=== PATIENT | female | born 1980 | race Caucasian/White ===

== ENCOUNTER 2018-01-25 06:59 | Inpatient (IN) | payer OTHER ==
[~2018-01-25] VITALS: Ht 172.7 cm; Wt 125.0 kg
--- NOTE | ~2018-01-25 | OR ---
[facility] [address] [place], [place] [address] Draft DATE OF OPERATION: 01/25/2018 SURGEON: Paulette Blanc DO PREOPERATIVE DIAGNOSES: 1. Di-Di twins at 36 weeks and five days gestation. 2. Active labor. 3. History of prior . 4. Obesity. 5. GBS positive. 6. Rh negative, status post RhoGAM at 28 weeks. POSTOPERATIVE DIAGNOSES: 1. Di-Di twins at 36 weeks and five days gestation. 2. Active labor. 3. History of prior . 4. Obesity. 5. GBS positive. 6. Rh negative, status post RhoGAM at 28 weeks. ANESTHESIA: Spinal. LAW WRITER: Daniel Mendoza MD ESTIMATED BLOOD LOSS: 700 mL. COMPLICATIONS: None. FINDINGS: Di-Di twins with baby A male , 6 pounds 7 ounces with Apgars of 9 and 9 in a cephalic position with a true knot noted. Baby B, female, 5 pounds 4 ounces with Apgars of 5 and 9 at 1 and 5 minutes respectively. No nuchal cord. Compound presentation who was delivered in double footling breech. Normal tubes, uterus, and ovaries. Some mild omental adhesions to the anterior abdominal wall. There was a small non expanding hematoma on the lower edge of the hysterotomy that was examined several times to ensure that it was not expanding. PATIENT NAME: YONG LARA OPERATIVE REPORT DATE OF : 84 REPORT #: [id number] PHYSICIAN: PAULETTE BLANC DO PCP: PAULETTE BLANC DO REPORT IS CONFIDENTIAL AND NOT TO BE RELEASED WITHOUT AUTHORIZATION [facility] [address] [place], [place] [address] Draft INDICATIONS: Ms. Lara is a pleasant 37-year-old, 7, para 1-0-5-1, with Di-Di twins at 36 and 5 weeks gestation who presented to Labor and delivery complaining of contractions increasing in frequency and intensity for several hours. She was admitted for observation and noted to undergo cervical change. She has a history of prior and decision was made to proceed with repeat low transverse delivery. Risks, benefits, alternatives were discussed in detail with the patient. Patient understands and wishes to proceed with the procedure. Pediatrics was notified and present for delivery. TECHNIQUE: The patient was taken the operating room. A time-out was performed for correct patient, correct procedure. Spinal anesthesia was adequately established. The patient was then prepped and draped in the supine position with a bump under the right hip. A Ardon catheter was inserted. ICP's were on and running, and Ancef 3 g were given preoperatively. No heparin was indicated. Once spinal anesthetic was adequately established, a Pfannenstiel skin incision was made through the old scar and carried down to the fascia. The fascia was nicked in the midline with a scalpel and fascial incision was extended bilaterally using Castro scissors. The fascia was grasped with Teresa's and the underlying rectus muscle dissected off easily, sharply, and bluntly. The rectus muscles were divided in the midline using sharp, and blunt dissection. The peritoneum was grasped with hemostats, elevated, and entered sharply. Peritoneal incision was extended caudad, and cephalad using blunt, and sharp dissection. The surgeon's hand was then placed into the abdomen and the small omental adhesions were noted superior to the operative site. No other adhesions were noted. An Casey self retractor was then placed, and the lower uterine segment identified. Hysterotomy was then performed using a surgical scalpel. Baby A was noted to be cephalic, and the amniotic sac was ruptured for clear fluid. The surgeon's hand was placed in the uterine cavity after the hysterotomy was extended using blunt dissection. The head was then elevated into the maternal abdomen, and delivered with the assistance of fundal pressure. The baby delivered easily and no nuchal cord was noted. However, there was a true knot x1. The cord was doubly clamped and cut. The was handed to the waiting pediatric team, and noted to be vigorous and crying. Attention was turned to baby B. Fundal pressure was applied and small parts were noted to be presenting. The amnion was ruptured and clear fluid was noted. The surgeon's hands were placed into the uterine cavity and a compound hand and foot presentation was noted. The 2nd foot was identified and was easily brought down to the hysterotomy. The baby's hand was reoriented into the upper fundus of the uterus and the baby was then delivered in a double footling breech position up to the axilla. The anterior arm was swept medially and the anterior arm was delivered. The baby was then rotated 180 degrees and the other arm was swept medial and PATIENT NAME: YONG LARA OPERATIVE REPORT DATE OF : 84 REPORT #: [id number] PHYSICIAN: PAULETTE BLANC DO PCP: PAULETTE BLANC DO REPORT IS CONFIDENTIAL AND NOT TO BE RELEASED WITHOUT AUTHORIZATION [address] [address] [place] delivered. The head was flexed and delivered without difficulty. The cord was doubly clamped, and cut, and the was somewhat lethargic, and handed off to the waiting pediatric team for additional care. Cord blood was obtained from each corner, and labeled for further analysis. The placenta was then spontaneously expressed intact with two centrally inserted three-vessel cords noted. The uterus was cleared of any remaining products of conception and clot and hysterotomy was reapproximated using 0 Vicryl in a running locked manner. A small hematoma was noted at the lower edge of the hysterotomy. This was examined several times throughout the procedure and noted to be non-expanding. A 2nd imbricating layer of 0 Vicryl was then applied in a vertical manner with good imbrication. Small amount of oozing was noted at the superior edge of the hysterotomy and this was made hemostatic with [id number]. Another small area of oozing was noted at the left edge of the hysterotomy and again this was made hemostatic with [id number] of 0 Vicryl. This was noted on the uterine corpus and not into the broad ligaments. Again, the hematoma was examined, and found to be non-expanding and the Casey self retractor was removed. The uterus was irrigated, and noted to be hemostatic several times. The uterus, tubes, and ovaries were found to be normal. Once hemostasis was appreciated a sheet was applied at the lower uterine segment and peritoneum was reapproximated using 2-0 Vicryl in a running nonlocked manner. The rectus muscle was examined, several small areas of oozing were made hemostatic with Bovie electrocautery. The rectus muscles were then reapproximated using 0 Vicryl, in two interrupted loose sutures. Although hemostasis was appreciated, decision was made to apply Kenneth powder to the previously noted oozing areas, and again excellent hemostasis was appreciated. ACell powder was then applied to the rectus sheath and fascia was reapproximated using 0 Vicryl in a running nonlocked manner. Subcutaneous tissues reapproximated with 3-0 Vicryl after ensuring hemostasis with Bovie electrocautery and irrigation. Skin was then reapproximated using surgical trudy. The uterus was Crede'd for scant amount of blood. The patient was then taken to the PACU in good stable condition with her babies. Sponge, needle, and instrument count was correct x2 at the end of the procedure. Dr. Mendoza was present participated in all portions of procedure. Paulette Blanc DO JDW/MODL /[id number] PATIENT NAME: YONG LARA OPERATIVE REPORT DATE OF : 84 REPORT #: [id number] PHYSICIAN: PAULETTE BLANC DO PCP: PAULETTE BLANC DO REPORT IS CONFIDENTIAL AND NOT TO BE RELEASED WITHOUT AUTHORIZATION [facility] [address] [place] [address] [place] [address] Draft Copies: ~ PATIENT NAME: YONG LARA OPERATIVE REPORT DATE OF : 84 REPORT #: [id number] PHYSICIAN: PAULETTE BLANC DO PCP: PAULETTE LBANC DO REPORT IS CONFIDENTIAL AND NOT TO BE RELEASED WITHOUT AUTHORIZATION
[~2018-01-25 06:59] MED LIST: IBUPROFEN800 MG PO; OMEPRAZOLE20 MG PO; [UNRECOGNIZED DRUG - OTHER] PO
--- NOTE | 2018-01-25 10:58 | NUR ---
01/25/18 1058 Lisa Perez 1051 PATIENT ARRIVES TO ROOM AWAKE, ALERT AND ORIENTED X3. RESP EVEN AND UNLABORED, ROOM AIR AT 98-100%. DENIES PAIN OR NAUSEA.
== END 2018-01-28 13:00 | disposition home or self-care (01) | DRG 765 ==
LOC: FBCO 06:59 → FBC 08:53
PROVIDERS: ADMIT Obstetrics & Gynecology
PROC: 10D00Z1 Extraction of Products of Conception, Low, Open Approach (ICD-10-PCS; principal; 2018-01-25 09:58)
DX: O30.043 Twin pregnancy, dichorionic/diamniotic, third trimester (principal); O60.14X1 Preterm labor third trimester with preterm delivery third trimester, fetus 1; O60.14X2 Preterm labor third trimester with preterm delivery third trimester, fetus 2; O99.214 Obesity complicating childbirth; E66.9 Obesity, unspecified; O99.824 Streptococcus B carrier state complicating childbirth; O99.62 Diseases of the digestive system complicating childbirth; K21.9 Gastro-esophageal reflux disease without esophagitis; O69.2XX1 Labor and delivery complicated by other cord entanglement, with compression, fetus 1; O76 Abnormality in fetal heart rate and rhythm complicating labor and delivery; O32.6XX2 Maternal care for compound presentation, fetus 2; O34.211 Maternal care for low transverse scar from previous cesarean delivery; N85.8 Other specified noninflammatory disorders of uterus; Z3A.36 36 weeks gestation of pregnancy; Z14.8 Genetic carrier of other disease; Z79.899 Other long term (current) drug therapy; Z68.37 Body mass index [BMI] 37.0-37.9, adult; Z88.2 Allergy status to sulfonamides; Z37.2 Twins, both liveborn
CPT/HCPCS: 01961; 36415; 59025; 80053; 82570; 84156; 84550; 85025; 85027; 86850; 86870; 86900; 86901; 99213; C1763; J0690; J1644; J1885; J2270; J2274; J2300; J2405; J2590; J3010; J7120